=== PATIENT | male | born 1975 | race Caucasian/White ===

== ENCOUNTER 2024-11-09 01:29 | Day surgery (SDC) | payer OTHER, SELFPAY ==
[2024-10-21 11:24] VITALS: BMI 28.7
[2024-11-09 09:08] VITALS: BP 139/91; PULSE 81; RESP 16; TEMP 36.2; O2SAT 100; BMI 28.4
[2024-11-09 09:17] LABS: Glucose Point of Care 156 mg/dl (65-105)
[2024-11-09] MEDS: LACTATED RINGERS 1,000 ML 150 ML IV CONT (09:19)
--- NOTE | 2024-11-09 09:41 | P.PNAN_ITS ---
Anes - Initial Pre Proc Eval Procedure: Operation Date: 11/09/24 10:30 Proposed Procedures p Screening Colonoscopy - Durga Patterson MD Date/Time: 11/09/24 09:41 Surgeon: Durga Patterson MD Pre Op Diagnosis: SCREENING Patient Data Age: 49 Gender: M Height: 1.78 m Weight: 90 kg Last Vital Signs Temp 36.2 C L 11/09/24 09:08 Pulse 81 11/09/24 09:08 Resp 16 11/09/24 09:08 BP 139/91 H 11/09/24 09:08 Pulse Ox 100 11/09/24 09:08 O2 Del Method Room Air 11/09/24 09:08 Allergies Allergy/AdvReac Type Severity Reaction Status Date / Time aspirin Allergy Unknown Unknown Verified 11/09/24 09:07 Penicillins Allergy Unknown Unknown Verified 11/09/24 09:07 Home Medications ?Medication ?Instructions ?Recorded ?Confirmed ?Type empagliflozin 25 mg tablet See Rx Instructions .Route 07/27/24 10/21/24 Rx (Jardiance) .COMPLEX #90 tabs lovastatin 10 mg tablet See Rx Instructions .Route 07/27/24 10/21/24 Rx .COMPLEX #90 tabs metformin 500 mg tablet,extended See Rx Instructions .Route 07/27/24 10/21/24 Rx release 24 hr .COMPLEX #360 tabs semaglutide 1 mg/dose (4 mg/3 mL) See Rx Instructions .Route 09/02/24 10/21/24 Rx subcutaneous pen injector (Ozempic) .COMPLEX #3 mL Laboratory Tests 11/09/24 09:15 POC Capillary Glucose 156 H mg/dl (65-105) Patient hx anesthesia problems: none Family hx anesthesia problems: none Results Review: All pre-operative results and documents have been reviewed as part of the pre- operative evaluation. [facility] Past Medical History Medical History Overweight (BMI 25.0-29.9) HTN (hypertension), benign Surgical History Surgical History History of hernia repair (~09/11/11) Family History Family History Father Diabetes mellitus Mother Diabetes mellitus Hypertension Social History Social History (Updated 11/09/24 @ 09:42 by Yifan Eagle MD) Smoking status: Former smoker Smoking end date: 05/13/15 Alcohol intake: current Lack of Transportation: No Lack of Food: Never True Current Housing: I Have Housing Concerned About Future Housing: No Difficulty Paying Gas/Electric Bills: No Difficulty Paying for Meds: No Currently Unemployed: No Education: High School Diploma/GED Difficulty w/ Childcare or Family Care: No Anes - Eval Final PreProcedure Day of Procedure 11/09/24 09:41 Patient weight: overweight Heart: regular rate and rhythm Lungs: clear to auscultation Airway: Mallampati scale class II Neurological: alert and oriented Last oral intake: >/= 8 hours ASA classification: III Emergent: no Anesthetic plan: proceed Anesthesia type and monitoring: general GIVS and standard monitoring Results Review: All pre-operative results and documents have been reviewed as part of the pre- operative evaluation. Informed Consent: The patient's anesthetic plan and its attendant risks and benefits were discussed with the patient/family/POA. Questions were solicited and answers provided to the satisfaction of the patient/family/POA.
--- NOTE | 2024-11-09 10:39 | PM.IMHP ---
H&P: HPI History of Present Illness Date/Time: 11/09/24 10:39 Chief Complaint: Screening colonoscopy Narrative: This is the patient's first colonoscopy. There are no GI symptoms and there is no family history of colorectal cancer. Review of Systems Review of Systems: All systems reviewed & are unremarkable except as noted in HPI and below PMFSH Past Medical History Medical History Overweight (BMI 25.0-29.9) HTN (hypertension), benign Surgical History Surgical History History of hernia repair (~09/11/11) Family History Family History Father Diabetes mellitus Mother Diabetes mellitus Hypertension Social History Social History (Updated 11/09/24 @ 09:42 by Yifan Eagle MD) Smoking status: Former smoker Smoking end date: 05/13/15 Alcohol intake: current Lack of Transportation: No Lack of Food: Never True Current Housing: I Have Housing Concerned About Future Housing: No Difficulty Paying Gas/Electric Bills: No Difficulty Paying for Meds: No Currently Unemployed: No Education: High School Diploma/GED Difficulty w/ Childcare or Family Care: No Meds Home Medications and Allergies Home Medications ?Medication ?Instructions ?Recorded ?Confirmed ?Type empagliflozin 25 mg tablet See Rx Instructions .Route 07/27/24 10/21/24 Rx (Jardiance) .COMPLEX #90 tabs lovastatin 10 mg tablet See Rx Instructions .Route 07/27/24 10/21/24 Rx .COMPLEX #90 tabs metformin 500 mg tablet,extended See Rx Instructions .Route 07/27/24 10/21/24 Rx release 24 hr .COMPLEX #360 tabs semaglutide 1 mg/dose (4 mg/3 mL) See Rx Instructions .Route 09/02/24 10/21/24 Rx subcutaneous pen injector (Ozempic) .COMPLEX #3 mL Allergies Allergy/AdvReac Type Severity Reaction Status Date / Time aspirin Allergy Unknown Unknown Verified 11/09/24 09:07 Penicillins Allergy Unknown Unknown Verified 11/09/24 09:07 Vital Signs Vital Signs - 24 hr 11/09/24 09:08 Temperature 97.2 F L Pulse Rate 81 Respiratory Rate 16 Blood Pressure 139/91 H Pulse Oximetry 100 Oxygen Delivery Room Air Exam Const: General: cooperative and healthy appearing Resp: Effort & Inspection: normal respiratory effort and able to speak in complete sentences Auscultation: clear to auscultation bilaterally Cardio: Rate: regular rate Rhythm: regular rhythm GI: Inspection: normal to inspection GI Palp: No No hepatosplenomegaly present Auscultation: normal bowel sounds Rectal Exam: deferred Skin: General skin exam: normal color Psych: Appearance: grossly normal Mental Status: mental status grossly normal Assessment and Plan Assessment and plan (1) Encounter for screening colonoscopy: Code(s): Z12.11 - Encounter for screening for malignant neoplasm of colon Status: Acute Assessment and Plan: The patient is deemed a good candidate for the procedure. Consent signed. Will proceed.
[2024-11-09 11:16] VITALS: BP 112/80; PULSE 77; RESP 16; O2SAT 96
--- NOTE | 2024-11-09 11:16 | S_PTH ---
PATIENT: Aldo Kaplan LOC: [facility] U#:[id number] AGE/SX: 49/M ROOM: RE11/09/[address]: Durga Patterson MD : 1975 BED: DIS: 11/09/2024 SPEC #: [id number] RECD: 11/09/24 14:08 STATUS: NICOLE RE #: [id number] CHARISSA: 11/09/24 11:[address]: Durga Patterson DEPT: [facility] Surgical RECD BY: Gisele Jean ENTERED: 11/09/24 14:08 SP TYPE: Surgical OTHR DR: Slava Medina MD Tissues: A - Colon Polypectomy B - Colon Polypectomy C - Colon Polypectomy Procedures: Hematoxylin and Eosin Stain Gross and Microscopic Level 4
[2024-11-09 11:26] VITALS: BP 118/89; PULSE 73; RESP 16; O2SAT 97
[2024-11-09 11:32] VITALS: BP 114/72; PULSE 72; RESP 16; O2SAT 97
== END 2024-11-09 11:44 | disposition home or self-care (01) ==
PROVIDERS: PCP Family Medicine; Referring Provider Family Medicine; Visit Provider Internal Medicine Gastroenterology
PROC: 0DJD8ZZ Inspection of Lower Intestinal Tract, Via Natural or Artificial Opening Endoscopic (ICD-10-PCS; CPT 45378; principal; 2024-11-09 10:30)
DX: Z12.11 Encounter for screening for malignant neoplasm of colon (principal); K63.5 Polyp of colon; D12.8 Benign neoplasm of rectum; K62.1 Rectal polyp; Z79.84 Long term (current) use of oral hypoglycemic drugs; Z79.85 Long-term (current) use of injectable non-insulin antidiabetic drugs; Z87.891 Personal history of nicotine dependence
CPT/HCPCS: 45385; 82948; 88305; J2704; J7120